=== PATIENT | male | born 1965 | race Caucasian/White ===

== ENCOUNTER 2016-05-19 06:01 | Emergency (ER) | payer SELFPAY ==
[~2016-05-19] VITALS: Ht 182.9 cm; Wt 118.0 kg
[~2016-05-19 06:01] MED LIST: ASPI325T24 PO; HYDR10TA16 PO; METH40TA9 PO; XANA1TAB6 PO; Z.0.NO CURRENT MEDS
[2016-05-19 06:03] VITALS: BP 178/95; PULSE 75; RESP 20; TEMP 97.5; O2SAT 97
--- NOTE | 2016-05-19 06:33 | RADRPT ---
EXAM DATE/TIME: 05/19/2016 06:28 [place] COMPARISON: No previous studies available for comparison. INDICATIONS : Right lateral chest wall pain from a fall. MEDICAL HISTORY : None. SURGICAL HISTORY : None. ENCOUNTER: Initial ACUITY: 1 day PAIN SCORE: 8/10 LOCATION: Right flank chest FINDINGS: A single view of the chest demonstrates the lungs to be symmetrically aerated without evidence of mas s, infiltrate or effusion. The cardiomediastinal contours are unremarkable. Osseous structures are intact. CONCLUSION: Normal examination. Ozzy Wang MD on May 19, 2016 at 6:32 Board Certified Radiologist. This report was verified electronically.
[2016-05-19] MEDS ORDERED: IBUP800T23 PO (06:43)
[2016-05-19] MEDS ORDERED: KETOROLAC TROMETHAMINE 60 MG/2 ML (IM) VIAL IM ONE (06:45)
--- NOTE | 2016-05-19 06:53 | PD ---
HPI Chief Complaint: Pain: Acute or Chronic Time Seen by Provider: 06:42 Travel History International Travel<30 days: No Contact w/Intl Traveler<30days: No Traveled to known affect area: No History of Present Illness HPI 50-year-old male presents to emergency department for evaluation a left rib pain. Patient states that he tripped over some toys and fell against the coffee table. He experienced immediate pain. States it has been difficult to take a deep breath secondary to pain since this happened. Rates the pain a 10 out of 10 at this time. Exacerbated by movement or touch. He has no other symptoms to report at this time. PFSH Past Medical History Arthritis: No Asthma: No Autoimmune Disease: No Heart Rhythm Problems: No High Cholesterol: No Chest Pain: No Congestive Heart Failure: No COPD: No Cerebrovascular Accident: No Diabetes: No Diminished Hearing: No GERD: No Glaucoma: No Headaches: No Hepatitis: Yes (HEP C) Hiatal Hernia: No Hypertension: No Kidney Stones: No Musculoskeletal: Yes (NUMEROUS ORTHOPEDIC REPAIRS) Myocardial Infarction: No Renal Failure: No Seizures: No Sleep Apnea: No Thyroid Disease: No Ulcer: No Past Surgical History Abdominal Surgery: No AICD: No Cardiac Surgery: No Ear Surgery: No Endocrine Surgery: No Eye Surgery: No Genitourinary Surgery: No Gynecologic Surgery: No Oral Surgery: Yes Pacemaker: No Thoracic Surgery: No Other Surgery: Yes (HERNIA REPAIR LIVER BIOPSY) Social History Alcohol Use: Yes Tobacco Use: Yes (1 PPD) Substance Use: No Allergies-Medications (Allergen,Severity, Reaction): Coded Allergies: No Known Allergies (Verified , 05/19/16) Reported Meds & Prescriptions Reported Meds & Active Scripts Active Ibuprofen 800 Mg Tab 800 Mg PO Q8H PRN Reported Ecotrin (Aspirin) 325 Mg Tabec 325 Mg PO DAILY Lortab 10/500 (Acetaminophen/Hydrocodone Bitart) 10 Mg/500 Mg Tab 1 Tab PO Q4HPRN FOR PAIN Xanax 1 mg (Alprazolam) 1 Mg Tab 1 Mg PO TID Methadone Hcl (Methadone HCl) 40 Mg Tab 60 Mg PO BID No Current Meds (Miscellaneous Medication) Misc Review of Systems Except as stated in HPI: all other systems reviewed are Neg Physical Exam Narrative GENERAL: Well-nourished male patient, in no acute distress SKIN: Warm and dry. HEAD: Atraumatic. Normocephalic. EYES: Pupils equal and round. No scleral icterus. No injection or drainage. ENT: No nasal bleeding or discharge. Mucous membranes pink and moist. NECK: Trachea midline. No JVD. CARDIOVASCULAR: Regular rate and rhythm. No murmur appreciated. RESPIRATORY: No accessory muscle use. Clear to auscultation. Breath sounds equal bilaterally. Tenderness elicited palpation of the right anterior lateral chest. No crepitus. Even respirations. GASTROINTESTINAL: Abdomen soft, non-tender, nondistended. Hepatic and splenic margins not palpable. MUSCULOSKELETAL: No obvious deformities. No clubbing. No cyanosis. No edema. NEUROLOGICAL: Awake and alert. No obvious cranial nerve deficits. Motor grossly within normal limits. Normal speech. PSYCHIATRIC: Appropriate mood and affect; insight and judgment normal. Data Data Last Documented VS Vital Signs Date Time Temp Pulse Resp B/P Pulse Ox O2 Delivery O2 Flow Rate FiO2 05/19/16 06:03 97.5 75 20 178/95 97 Orders Chest, Single Ap (05/19/16 ) Ketorolac Inj (Toradol Inj) (05/19/16 06:45) MDM Medical Decision Making Medical Screen Exam Complete: Yes Emergency Medical Condition: Yes Medical Record Reviewed: Yes Differential Diagnosis Rib contusion versus fracture versus pneumothorax versus muscle strain Narrative Course 50-year-old male presents to emergency room for evaluation right rib pain. X- ray imaging is without acute bony abnormality. I have encouraged the patient to continue to take deep breaths despite the pain to reduce risk of pneumonia. He is encouraged to follow-up with a primary care provider and return immediately with any acute worsening of symptoms. Diagnosis Primary Impression: Rib contusion Qualified Code: S20.211A - Rib contusion, right, initial encounter Referrals: Primary Care Physician Patient Instructions: General Instructions, Rib Contusion (ED) Additional Instructions: ICE may help to alleviate symptoms follow up with a primary care provider Make sure to take deep breaths Return to ED with acute worsening of symptoms Med/Other Pt SpecificInfo: Prescription(s) given Scripts Ibuprofen 800 Mg [id number] Mg PO Q8H PRN (Pain/Inflammation) #30 TAB Ref 0 Prov:Maria Teresa Dozier 05/19/16 Disposition: 01 DISCHARGE HOME Condition: Stable Maria Teresa Dozier May 19, 2016 06:53
== END 2016-05-19 07:21 | disposition home or self-care (01) ==
LOC: NEPB 06:01
DX: S20.211A Contusion of right front wall of thorax, initial encounter (principal); F17.210 Nicotine dependence, cigarettes, uncomplicated; B19.20 Unspecified viral hepatitis C without hepatic coma; W18.09XA Striking against other object with subsequent fall, initial encounter
CPT/HCPCS: 71010; 99283

== ENCOUNTER 2016-12-02 10:22 | Emergency (ER) | payer SELFPAY ==
[~2016-12-02] VITALS: Ht 180.3 cm; Wt 115.0 kg
[~2016-12-02 10:22] MED LIST changes: +IBUP800T23 PO
[2016-12-02 10:24] VITALS: BP 143/83; PULSE 72; RESP 20; TEMP 98.3; O2SAT 96
--- NOTE | 2016-12-02 11:41 | PD ---
HPI Chief Complaint: Medical Clearance Time Seen by Provider: 11:31 Travel History International Travel<30 days: No Contact w/Intl Traveler<30days: No Traveled to known affect area: No History of Present Illness HPI This is a 51-year-old male who presents to the emergency department with history of hepatitis C concerned that his "liver levels are high." He says over the past 2-3 weeks he has noticed that he has become more confused, feels slow, and feels like his legs are more swollen. these symptoms have been constant and worsening. He feels like PFSH Past Medical History Arthritis: No Asthma: No Autoimmune Disease: No Heart Rhythm Problems: No High Cholesterol: No Chest Pain: No Congestive Heart Failure: No COPD: No Cerebrovascular Accident: No Diabetes: No Diminished Hearing: No GERD: No Glaucoma: No Headaches: No Hepatitis: Yes (HEP C) Hiatal Hernia: No Hypertension: No Kidney Stones: No Musculoskeletal: Yes (NUMEROUS ORTHOPEDIC REPAIRS) Myocardial Infarction: No Renal Failure: No Seizures: No Sleep Apnea: No Thyroid Disease: No Ulcer: No Past Surgical History Abdominal Surgery: No AICD: No Cardiac Surgery: No Ear Surgery: No Endocrine Surgery: No Eye Surgery: No Genitourinary Surgery: No Gynecologic Surgery: No Oral Surgery: Yes Pacemaker: No Thoracic Surgery: No Other Surgery: Yes (HERNIA REPAIR LIVER BIOPSY) Social History Alcohol Use: Yes Tobacco Use: Yes (1 PPD) Substance Use: No Allergies-Medications (Allergen,Severity, Reaction): Coded Allergies: No Known Allergies (Verified , 05/19/16) Reported Meds & Prescriptions Reported Meds & Active Scripts Active Reported Methadone (Methadone HCl) 40 Mg Tab 220 Mg PO DAILY Physical Exam Narrative GENERAL:Well appearing, no acute distress SKIN: Focused skin assessment warm and dry. HEAD: Atraumatic. Normocephalic. EYES: Pupils equal and round. No injection or drainage. ENT: Moist mucous membranes NECK: Trachea midline. CARDIOVASCULAR: Regular rate and rhythm. No murmur appreciated. RESPIRATORY: Clear to auscultation. Breath sounds equal bilaterally. GASTROINTESTINAL: Abdomen soft, non-tender, nondistended. MUSCULOSKELETAL: No obvious deformities. NEUROLOGICAL: Awake and alert. No obvious cranial nerve deficits. Moving all extremities. PSYCHIATRIC: Appropriate mood and affect; insight and judgment normal. Data Data Last Documented VS Vital Signs Date Time Temp Pulse Resp B/P (MAP) Pulse Ox O2 Delivery O2 Flow Rate FiO2 12/02/16 10:24 98.3 72 20 143/83 (103) 96 Room Air Orders Orders Complete Blood Count With Diff (12/02/16 11:36) Comprehensive Metabolic Panel (12/02/16 11:36) Ammonia (12/02/16 11:36) Labs Laboratory Tests Test 12/02/16 11:55 White Blood Count 8.9 TH/MM3 Red Blood Count 5.34 MIL/MM3 Hemoglobin 15.6 GM/DL Hematocrit 47.9 % Mean Corpuscular Volume 89.8 FL Mean Corpuscular Hemoglobin 29.3 PG Mean Corpuscular Hemoglobin Concent 32.6 % Red Cell Distribution Width 13.4 % Platelet Count 134 TH/MM3 Mean Platelet Volume 7.9 FL Neutrophils (%) (Auto) 81.3 % Lymphocytes (%) (Auto) 11.7 % Monocytes (%) (Auto) 6.1 % Eosinophils (%) (Auto) 0.8 % Basophils (%) (Auto) 0.1 % Neutrophils # (Auto) 7.3 TH/MM3 Lymphocytes # (Auto) 1.0 TH/MM3 Monocytes # (Auto) 0.5 TH/MM3 Eosinophils # (Auto) 0.1 TH/MM3 Basophils # (Auto) 0.0 TH/MM3 CBC Comment DIFF FINAL Differential Comment Blood Urea Nitrogen 11 MG/DL Creatinine 0.93 MG/DL Random Glucose 100 MG/DL Total Protein 8.3 GM/DL Albumin 3.7 GM/DL Calcium Level 8.9 MG/DL Alkaline Phosphatase 105 U/L Aspartate Amino Transf (AST/SGOT) 115 U/L Alanine Aminotransferase (ALT/SGPT) 130 U/L Total Bilirubin 1.2 MG/DL Sodium Level 136 MEQ/L Potassium Level 4.4 MEQ/L Chloride Level 101 MEQ/L Carbon Dioxide Level 28.5 MEQ/L Anion Gap 7 MEQ/L Estimat Glomerular Filtration Rate 85 ML/MIN Ammonia 23 MCMOL/L MDM Medical Decision Making Medical Screen Exam Complete: Yes Emergency Medical Condition: Yes Interpretation(s) Afebrile, no tachycardia, mild hypertension Mild transaminitis new from prior labs in 2007 Differential Diagnosis Hepatitis, alcoholic cirrhosis, liver failure, hepatic encephalopathy Narrative Course This is a 51-year-old male who presents to the emergency department concerned that he has worsening liver function tests. He has a history of hepatitis C and hasn't received treatments and see her 1999. He also drinks alcohol. Labs are obtained which demonstrate upward trending LFTs with a normal ammonia level. I advised the patient of this. I counseled him to continue abstinence from alcohol and to follow-up with the [facility]. Diagnosis Primary Impression: Abnormal LFTs (liver function tests) Patient Instructions: General Instructions Additional Instructions: If you develop severe or worsening abdominal pain, fever>100.4, persistent vomiting or inability to eat or drink return to the emergency department immediately. Follow up with your primary care physician in 1-2 days for a check-up. Med/Other Pt SpecificInfo: No Change to Meds Disposition: 01 DISCHARGE HOME Condition: Stable Marifer Aguilera MD Dec 02, 2016 11:41
[2016-12-02] MEDS ORDERED: METH40TA PO (11:49)
[2016-12-02 12:20] LABS: AUTOMATED NEUTROPHIL # 7.3 TH/MM3 (1.8-7.7); BASOPHIL % 0.1 % (0.0-2.0); EOSINOPHIL # 0.1 TH/MM3 (0-0.4); EOSINOPHIL % 0.8 % (0.0-4.0); HEMATOCRIT 47.9 % (39.0-51.0); HEMO FLAGS DIFF FINAL; LYMPH % 11.7 % (9.0-44.0); MEAN CELL VOLUME 89.8 FL (80.0-100.0); MEAN CORPUSCULAR HEMOGLOBIN 29.3 PG (27.0-34.0); MEAN CORPUSCULAR HGB CONC 32.6 % (32.0-36.0); MONO % 6.1 % (0.0-8.0); NEUT % 81.3 % (16.0-70.0); PLATELET COUNT 134 TH/MM3 (150-450); RED BLOOD COUNT 5.34 MIL/MM3 (4.50-5.90); RED CELL DISTRIBUTION WIDTH 13.4 % (11.6-17.2); WHITE BLOOD COUNT 8.9 TH/MM3 (4.0-11.0)
[2016-12-02 12:41] LABS: ALT (GPT) 130 U/L (12-78); ANION GAP 7 MEQ/L (5-15); BICARBONATE 28.5 MEQ/L (21.0-32.0); BLOOD UREA NITROGEN 11 MG/DL (7-18); CHLORIDE 101 MEQ/L (98-107); GLOMERULAR FILTRATION RATE 85 ML/MIN (>89); POTASSIUM 4.4 MEQ/L (3.5-5.1); SODIUM (NA) 136 MEQ/L (136-145)
[2016-12-02 12:44] LABS: ALKALINE PHOSPHATASE 105 U/L (45-117); AST (GOT) 115 U/L (15-37); TOTAL BILIRUBIN ADULT 1.2 MG/DL (0.2-1.0)
== END 2016-12-02 13:47 | disposition home or self-care (01) ==
LOC: NEPD 10:22
DX: R79.89 Other specified abnormal findings of blood chemistry (principal); R41.0 Disorientation, unspecified; R22.43 Localized swelling, mass and lump, lower limb, bilateral; F17.200 Nicotine dependence, unspecified, uncomplicated; Z86.19 Personal history of other infectious and parasitic diseases; Z87.39 Personal history of other diseases of the musculoskeletal system and connective tissue
CPT/HCPCS: 80053; 82140; 85025; 99283